=== PATIENT | female | born 1960 | race Hispanic/Latino ===

== ENCOUNTER 2019-08-23 11:00 | Day surgery (SDC) | payer MEDICARE ==
[~2019-08-23 11:00] MED LIST: SODIUM CHLORIDE 0.9% 1000 ML 1,000 ML IV SCH
[2019-08-23] MEDS ORDERED: PROPOFOL 200 MG/20 ML VIAL IV ONE ×2 (12:29)
[2019-08-23] MEDS ORDERED: LIDOCAINE MPF (2%) 20 MG/1 ML VIAL 5 ML ONE (13:00)
--- NOTE | 2019-08-23 13:01 | Procedure Note ---
Date of procedure: 08/23/19 Pre-op diagnosis: GERD/Nausea and Vomiting/ Weight Loss Post-op diagnosis: other (Moderate to Severe Erosive Esophagitis/Gastritis/Patent Pylorus/R/O Celica Disease) Procedure: EGD with Biopsy Anesthesia: MAC Surgeon: THOMAS CHAVARIRA Estimated blood loss: minimal Pathology: list Specimen disposition: to lab Condition: stable Disposition: same day (Treat with PPI and Baclofen. Avoid aspirin, NSAID for 4 days; otherwise resume home medication. Follow up in 1 to 2 weeks ([phone]).)
--- NOTE | 2019-08-23 13:15 | Operative Report ---
PROCEDURE: Esophagogastroduodenoscopy with biopsy. INDICATIONS: A 59-year-old white female with an underlying history of cerebral palsy and mental retardation, who has been having persistent nausea, vomiting and weight loss. EGD was done to assess for the problem. DESCRIPTION OF PROCEDURE: Procedure was done after getting informed consent with MAC anesthesia. Instrument was passed through the hypopharynx into the esophagus, which showed moderate to severe erosive esophagitis. Photo documentation and biopsies were done. The stomach showed a large hiatal hernia. The pylorus is patent. The duodenum appeared normal in the first portion. Biopsy was done to rule out for possible celiac disease. Biopsy was also done from the gastric antrum, gastric body and angular incisura to rule out for H. pylori and atrophic gastritis. ASSESSMENT: Gastroesophageal reflux disease symptoms, symptoms of nausea, vomiting, moderate to severe erosive esophagitis, large hiatal hernia, gastritis, patent pylorus, rule out celiac disease. There is minimal bleeding associated with the procedure. No complications associated with the procedure. Procedure was done in the GI lab with assistance of the GI lab team, which included RNMary Carmen Regina and the assistance of Anesthesia. PLAN: To treat the patient with PPI, p.r.n. dose and also treat the patient with baclofen at bedtime. Advised about lifestyle changes. If the patient has persistence of symptoms, she may require a surgical evaluation for correction of the large hiatal hernia that she has. The patient will be asked to follow up in the office in 1-2 weeks' time. JOB# [id number] BENNETT/DANIEL
[2019-08-23 13:19] VITALS: BP 130/48
--- NOTE | 2019-08-23 15:00 | Anesthesia Consultation ---
Anesthesia Consult and Med Hx Date of service: 08/23/19 - Airway Anesthetic Teeth Evaluation: Poor, Edentulous ROM Head & Neck: Adequate Mental/Hyoid Distance: Adequate Mallampati Class: Class II Intubation Access Assessment: Good - Pulmonary Exam CTA: Yes - Cardiac Exam Cardiac Exam: RRR - Pre-Operative Health Status ASA Pre-Surgery Classification: ASA3 Proposed Anesthetic Plan: MAC
--- NOTE | 2019-08-23 15:00 | Post Anesthesia Evaluation ---
- Post Anesthesia Evaluation Patient Participated: Yes Airway Patent: Yes Stable Respiratory Function: Yes Nausea/Vomiting: No Temp > 96.8F: Yes Pain Manageable: Yes Adequeate Hydration: Yes Anesthesia Complications: No Block Receding Appropriately: Not Applicable Patient on Ventilator: No
--- NOTE | 2019-08-23 15:00 | Anesthesia Day of Surgery ---
Anesthesia Day of Surgery - Day of Surgery Patient Examined: Yes Patient H&P Reviewed: Yes Patient is NPO: Yes
== END 2019-08-23 11:01 | disposition home or self-care (01) ==
LOC: GIO 11:00
DX: R63.4 Abnormal weight loss (principal); R11.2 Nausea with vomiting, unspecified; K21.0 Gastro-esophageal reflux disease with esophagitis; K44.9 Diaphragmatic hernia without obstruction or gangrene; Z88.8 Allergy status to other drugs, medicaments and biological substances; Z79.899 Other long term (current) drug therapy
CPT/HCPCS: 43239; 88305; 88342; J2704; J7030; 88312